=== PATIENT | male | born 1950 | race Caucasian/White ===

== ENCOUNTER → 2019-10-29 13:38 | Outpatient (CLI) | payer MEDICARE, SELFPAY ==
--- NOTE | ~2019-10-29 | XR_ITS ---
XR shoulder RT min 2V 10/29/2019 14:01 Indication: Right shoulder pain Procedure: 4 views right shoulder Comparison: No prior studies for comparison. Findings: No acute fracture or traumatic malalignment. No significant soft tissue abnormality. No rad iopaque foreign bodies. Impression: 1: No significant bone or joint abnormality. Reviewed, dictated and finalized at location B. Impression: 1: No significant bone or joint abnormality.
== END ==
PROVIDERS: PCP Family Medicine; Visit Provider Physician Assistant
DX: M25.519 Pain in unspecified shoulder (principal)
CPT/HCPCS: 73030

== ENCOUNTER 2024-10-23 00:14 | Day surgery (SDC) | payer MEDICARE, SELFPAY ==
[2024-10-11 13:35] VITALS: BMI 23.0
--- OUTSIDE RECORDS SUMMARY | 2024-10-23 00:17 | XMS_ITS | Clinical Summary ---
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 He has some discomfort extremity varicosities however overall this is not life altering. We discussed left lower extremity stab phlebectomies, at this point he would like to hold off on the procedure and he will follow-up if they become more symptomatic. Assessment & Plan (08/06/2022 11:36 AM CDT): Chronic symptomatic and bulky varicosities noted to the left medial calf that extends up to the thigh. States it is worse with standing. Denies any development of edema. Has tried compression stockings which have not helped his symptoms. Plan: Obtain a venous reflux to the left lower extremity follow-up in 1 month. Continue utilizing the compression stockings frequent elevation of the legs. 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 Gender Identity Not on file Sexual Orientation Not on file Obstetrics History Last Filed Vital Signs Vital Sign Reading Time Taken Comments Blood Pressure - - Pulse - - Temperature - - Respiratory Rate - - Oxygen Saturation - - Inhaled Oxygen Concentration - - Weight 75.8 kg (167 lb) 09/15/2022 10:31 AM CDT Height 177.8 cm (5' 10) 09/15/2022 10:31 AM CDT Body Mass Index 23.96 09/15/2022 10:31 AM CDT Plan of Treatment Health Maintenance Due Date Last Done Comments Depression Screening 1950 Fall Risk Assessment 1950 Hepatitis C Screening 1950 DTaP/Tdap/Td Vaccine (1 - Tdap) 06/03/1959 Hepatitis B Screening 1966 Zoster Vaccine (2 of 3) 03/25/2012 01/29/2012 Abdominal Aortic Aneurysm (A AA) Screen 2013 Well Visit 65+ 2013 Covid-19 Vaccine (2023-2 5 season) 2023 11/17/2021, 07/26/2021, 11/18/2020, Additional history exists Influenza Vaccine (#1) 2024 , 11/14/2020, 11/23/2019, Additional history exists Pneumococcal vaccine 65+ Completed 12/12/2015, 10/15 Insurance [facility] MEDICARE ADVANTAGE [facility] Address: [address] [phone] [facility] MEDICARE ADVANTAGE [facility] Address: [address] [phone] Care Teams Parcel Post Officer Relationship Specialty Start Date End Date José Miguel Casas MD [address] [place] [id number] PCP - General Family Medicine 07/20/22
--- OUTSIDE RECORDS SUMMARY | 2024-10-23 00:17 | XMS_ITS | Encounter Summary ---
Author Organization [facility] Address [address] [place] [address] Care Team Providers Care Electro Plater Name Role Phone José Miguel Casas MD Primary Care Provider [phone] Encounter Details Date Type Department Care Team (Late st Contact Info) Description 07/26/2022 Lab Requisition [facility] - DermPath Lab [address] [place] [address] Bailey Stahl PA-C [address] [place] [address] Neoplasm of uncertain behavior of skin Social History Tobacco Use Types Packs/Day Years Used Date Smoking Tobacco: Never Assessed Sex and Gender Information Value Date Recorded Sex Assigned at Not on file Legal Sex Male 4:05 AM CDT Gender Identity Not on file Sexual Orientation Not on file documented as of this encounter Plan of Treatment Not on file documented as of this encounter Procedures Procedure Name Priority Date/Time Associated Diagnosis Comments DERMATOPATHOLOGY Routine 07/26/2022 12:0 0 AM CDT Neoplasm of uncertain behavior of skin [ICD-10-CM] documented in this encounter Results * DERMATOPATHOLOGY (07/26/2022 12:00 AM CDT) Case Report Dermatopathology Report Case: [id number] Authorizing Provider: Bailey Stahl PA-C Collected: 07/26/2022 12:00 AM Ordering Location: [facility] DermPath Lab Received: 07/27/2022 11:29 AM Pathologist: Geovanna Tee MD Specimen: Skin, right nasal bridge 2:48 PM CDT DERMATOPATHOLOGY LABORATORY Final Diagnosis Specimen A. SKIN, right nasal bridge: ACTINIC KERATOSIS, ERODED (L57.0) 3 2:48 PM CDT DERMATOPATHOLOGY LABORATORY at 1448 CDT Clinical History Squamous Cell Carcinoma 3 2:48 PM CDT DERMATOPATHOLOGY LABORATORY Gross Description Specimen A: Received is one formalin filled container labeled with the patient's name and designated right nasal bridge. The specimen consists of a shave biopsy measuring 6x5x1 mm. Jar 0. 3 2:48 PM CDT DERMATOPATHOLOGY LABORATORY Microscopic Description Specimen A. SKIN, right nasal bridge: There is alternating orthokeratosis and parakeratosis. The epidermis is focally eroded. Along the undersurface of the epidermis, there are buds of atypical keratinocytes in a disorderly arrangement. 3 2:48 PM CDT DERMATOPATHOLOGY LABORATORY Disclaimer An external and internal positive and negative controls are appropriate for the histochemical, immunohistochemical and immunofluorescence stain(s) in this case (if any), except where stated explicitly. The performance characteristics of the stain(s) cited in this report were developed and its performance characteristic determined by the Dermatopathology Laboratory at [facility], directed by Dr. Jorje Pina. These tests need not be, and therefore are not, approved by the [place] Food and Drug Administration. The tests are used for clinical purposes. Billing Codes Specimen Charges Stain Charges 10854 1 3 2:48 PM CDT DERMATOPATHOLOGY LABORATORY Embedded Images 3 2:48 PM CDT DERMATOPATHOLOGY LABORATORY Pathology/Cytolog y TISSUE SPECIMEN FROM SKIN / Unknown 07/26/2022 07/27/2022 11:29 AM CDT Bailey Stahl PA-C LAB - PATHOLOGY/CYTOLOGY RUY CARR Final Result DERMATOPATHOLOGY LABORATORY [facility] - Department of Dermatology [address] [phone] documented in this encounter Visit Diagnoses Diagnosis Neoplasm of uncertain behavior of skin documented in this encounter Care Teams Electro Plater Relationship Specialty Start Date End Date José Miguel Casas MD [address] [place] [phone] PCP - General 10/13/18 documented as of this encounter
--- OUTSIDE RECORDS SUMMARY | 2024-10-23 00:17 | XMS_ITS | Clinical Summary ---
Author Organization [facility] Address [address] [place] [id number] Care Team Providers Care Expansion Envelope Maker Hand Name Role Phone Unavailable Primary Care Provider Unavailabl e Social History Tobacco Use Types Packs/Day Years Used Date Smoking Tobacco: Never Assessed Sex and Gender Information Value Date Recorded Sex Assigned at Not on file Legal Sex Male 5:29 PM CDT Gender Identity Not on file Sexual Orientation Not on file Plan of Treatment Health Maintenance Due Date Last Done Comments Hepatitis C 1966 DTaP, Tdap and Td Vaccines ( 1 - Tdap) 06/03/1967 Pneumococcal Vaccine: 50+ Ye ars (1 of 1 - PCV) 1998 Zoster Vaccines (1 of 2) 1998 RSV Immunization or 60+ Years (1 - 1-dose 75+ series) 06/03/2023 COVID-19 Vaccine ( - 2023-2 5 season) 2024 Meningococcal B Vaccine Aged Out No l onger eligible based on patient's age to complete this topic Meningococcal Vaccine Aged Out No carlos mari eligible based on patient's age to complete this topic RSV Immunizations Under 20 Months Aged Out No longer eligible based on patient's age to complete this topic
--- OUTSIDE RECORDS SUMMARY | 2024-10-23 00:17 | XMS_ITS | Clinical Summary ---
Author Organization [facility] Address [address] [facility] [place] [address] Care Team Providers Care Medical Collector Name Role Phone José Miguel Casas MD Primary Care Provider [phone] [facility],non-owned Affiliates and Associated Physician Practices is amultiple site organization consisting of ambulatory clinics and hospital sitesin [place], [place], [place] and [place]. This disclosure is being madepursuant to the Care Everywhere program and may not contain all information available regarding this patient. Last updated 17.[facility] Social History Tobacco Use Types Packs/Day Years Used Date Smoking Tobacco: Never Assessed Sex and Gender Information Value Date Recorded Sex Assigned at Not on file Legal Sex Male 4:05 AM CDT Gender Identity Not on file Sexual Orientation Not on file Plan of Treatment Health Maintenance Due Date Last Done Comments HEPATITIS C SCREENING 05/29/1966 DTAP/TDAP/TD VACCINES (1 - Tdap) 06/03/1967 PNEUMOCOCCAL VACCINE 50+ (1 of 1 - PCV) 1998 ZOSTER VACCINE (1 of 2) 1998 Respiratory Syncytial Virus (RSV) Vaccine Pt: or over 60 yrs (1 - 1-dose 75+ series) 06/03/2023 COVID-19 VACCINE ( - 2023-2 5 season) 2023 DEPRESSION SCREENING 02/15/2024 MEDICARE AWV CALENDAR YEAR 2024 INFLUENZA VACCINE (#1) 2024 HEPATITIS B VACCINE Aged Out No longe r eligible based on patient's age to complete this topic HIB VACCINE Aged Out No longer eligi ble based on patient's age to complete this topic HPV VACCINE Aged Out No longer eligi ble based on patient's age to complete this topic MENINGOCOCCAL (Group B) VACC INE SHARED DECISION-MAKING Aged Out No longer eligibl e based on patient's age to complete this topic MENINGOCOCCAL GROUPS A/C/Y/W VACCINE Aged Out No longer eligible b ased on patient's age to complete this topic Insurance [facility] MANAGED MEDICARE ADV Care Teams Medical Collector Relationship Specialty Start Date End Date José Miguel Casas MD [address] [place] [id number] PCP - General 10/13/18
[2024-10-23 06:17] VITALS: BP 113/74; PULSE 74; RESP 18; TEMP 36.3; O2SAT 98; BMI 22.7
[2024-10-23] MEDS: LACTATED RINGERS 1,000 ML 150 ML IV CONT (06:37)
--- NOTE | 2024-10-23 06:56 | WPDANESEPPF ---
Anes - Initial Pre Proc Eval Procedure: Operation Date: 10/23/24 07:30 Proposed Procedures p Diagnostic Colonoscopy - Jose Levin MD Date/Time: 10/23/24 06:56 Surgeon: Jose Levin MD Pre Op Diagnosis: Change in bowel habit Patient Data Age: 74 Gender: M Height: 1.78 m Weight: 71.8 kg Last Vital Signs Temp 36.3 C L 10/23/24 06:17 Pulse 74 10/23/24 06:17 Resp 18 10/23/24 06:17 BP 113/74 10/23/24 06:17 Pulse Ox 98 10/23/24 06:17 O2 Del Method Room Air 10/23/24 06:17 Allergies Allergy/AdvReac Type Severity Reaction Status Date / Time No Known Allergies Allergy Verified 10/23/24 06:25 Home Medications ?Medication ?Instructions ?Recorded ?Confirmed ?Type cetirizine 10 mg tablet 10 mg PO DAILY PRN allergy 10/12/22 10/11/24 Rx symptoms #30 tabs fluticasone propionate 50 1 spray intranasal DAILY #16 grams 10/12/22 10/23/24 Rx mcg/actuation nasal spray,suspension (Flonase Allergy Relief) ketoconazole 2 % topical cream 1 applic topical DAILY #60 grams 10/12/22 10/23/24 Rx pxuoqywm-ch-ymzyb 300 mcg-K 60 1 tablet PO DAILY #30 tabs 10/12/22 10/23/24 Rx mcg-lycop 600 mcg-lutein 300 mcg tablet (Centrum Silver Men) mometasone 0.1 % topical cream 1 applic topical DAILY PRN rash 03/11/23 10/11/24 Rx #45 grams Patient hx anesthesia problems: none Family hx anesthesia problems: none Results Review: All pre-operative results and documents have been reviewed as part of the pre-operative evaluation. COUNTS INCLUDE 234 BEDS AT [facility] Past Medical History Medical History Personal history of other colon polyps Allergic rhinitis Varicose veins of left lower extremity with other complications Surgical History Surgical History History of incisional hernia repair 09/16/2017 History of appendectomy 09/20/2015 History of umbilical hernia repair 1997 History of inguinal hernia repair 12/2011 History of discectomy L4-L5 1992 Family History Family History Mother Hypertension Carcinoma of colon Father Family history of cardiovascular disease Acute myocardial infarction Sibling Family history of gastrointestinal disorder Acute myocardial infarction Grandparent Carcinoma of colon Social History Social History Years smoked: 50 Smoking status: Former smoker Tobacco type: cigarettes Substance use: never Substance use type: does not use Lack of Transportation: No Lack of Food: Never True Current Housing: I Have Housing Concerned About Future Housing: No Difficulty Paying Gas/Electric Bills: No Difficulty Paying for Meds: No Currently Unemployed: No Education: Associate Degree Difficulty w/ Childcare or Family Care: No Living arrangements: with family Occupation/Education: retired Gender identity (if verbalized by the patient): Male Sexual Orientation (if Verbalized by the Patient): Straight or Heterosexual Anes - Eval Final PreProcedure Day of Procedure 10/23/24 06:56 Patient weight: normal Heart: regular rate and rhythm Lungs: clear to auscultation Airway: Mallampati scale class II Neurological: alert and oriented Last oral intake: >/= 8 hours ASA classification: III Emergent: no Anesthetic plan: proceed Anesthesia type and monitoring: general GIVS and standard monitoring Results Review: All pre-operative results and documents have been reviewed as part of the pre-operative evaluation. Informed Consent: The patient's anesthetic plan and its attendant risks and benefits were discussed with the patient/family/POA. Questions were solicited and answers provided to the satisfaction of the patient/family/POA.
--- NOTE | 2024-10-23 07:28 | P.HP_ITS ---
History of Present Illness History of Present Illness Consent: Risks, benefits, and alternatives have been discussed and questions answered. Patient agrees to proceed with procedure. Chief complaint: colon polyp Narrative: Rhett Muro is a 74 year old male with colon polyp in 2019 Review of Systems Review of Systems: All systems reviewed & are unremarkable except as noted in HPI and below PMFSH Past Medical History Medical History Personal history of other colon polyps Allergic rhinitis Varicose veins of left lower extremity with other complications Surgical History Surgical History History of incisional hernia repair 09/16/2017 History of appendectomy 09/20/2015 History of umbilical hernia repair 1997 History of inguinal hernia repair 1990, 12/2011 History of discectomy L4-L5 1992 Family History Family History Mother Hypertension Carcinoma of colon Father Family history of cardiovascular disease Acute myocardial infarction Sibling Family history of gastrointestinal disorder Acute myocardial infarction Grandparent Carcinoma of colon Social History Social History Years smoked: 50 Smoking status: Former smoker Tobacco type: cigarettes Substance use: never Substance use type: does not use Lack of Transportation: No Lack of Food: Never True Current Housing: I Have Housing Concerned About Future Housing: No Difficulty Paying Gas/Electric Bills: No Difficulty Paying for Meds: No Currently Unemployed: No Education: Associate Degree Difficulty w/ Childcare or Family Care: No Living arrangements: with family Occupation/Education: retired Gender identity (if verbalized by the patient): Male Sexual Orientation (if Verbalized by the Patient): Straight or Heterosexual Meds Home Medications and Allergies Home Medications ?Medication ?Instructions ?Recorded ?Confirmed ?Type cetirizine 10 mg tablet 10 mg PO DAILY PRN allergy 0 10/12/22 10/11/24 Rx symptoms #30 tabs fluticasone propionate 50 1 spray intranasal DAILY #16 grams 10/12/22 10/23/24 Rx mcg/actuation nasal spray,suspension (Flonase Allergy Relief) ketoconazole 2 % topical cream 1 applic topical DAILY #60 grams 10/12/22 10/23/24 Rx gykbywft-da-nwyko 300 mcg-K 60 1 tablet PO DAILY #30 t abs 10/12/22 10/23/24 Rx mcg-lycop 600 mcg-lutein 300 mcg tablet (Centrum Silver Men) mometasone 0.1 % topical cream 1 applic topical DAILY PRN rash 03/11/23 10/11/24 Rx #45 grams Allergies Allergy/AdvReac Type Severity Reaction Status Date / Time No Known Allergies Allergy Verified 10/23/24 06:25 Vital Signs Vital Signs - 24 hr 10/23/24 06:17 Temperature 97.3 F L Pulse Rate 74 Respiratory Rate 18 Blood Pressure 113/74 Pulse Oximetry 98 Oxygen Delivery Room Air Exam Const: General: comfortable and no acute distress HENMT: Face/Nose/Sinus: Normal nares present Eyes: General: appearance normal, both eyes and all related structures Neck: Neck: no JVD Resp: Auscultation: clear to auscultation bilaterally Cardio: Rate: regular rate Rhythm: regular rhythm GI: Inspection: non-distended GI Palp: Yes Soft to palpation Skin: General skin exam: normal color Neuro: Speech: normal speech Extrem: General: normal to inspection Psych: Mental Status: mental status grossly normal Assessment and Plan Assessment and plan (1) Personal history of other colon polyps: Code(s): Z86.0109 - Personal history of other colon polyps Status: Acute Assessment and Plan: colonoscopy
--- NOTE | 2024-10-23 07:42 | S_PTH ---
PATIENT: Rhett Muro LOC: [facility]#:[id number] AGE/SX: 74/M ROOM: RE10/23/[address]: Jose Levin MD : 1950 BED: DIS: 10/23/2024 SPEC #: [id number] RECD: 10/23/24 08:10 STATUS: JONN REKimberlee #: [id number] CAROLINE: 10/23/24 07:[address]: Jose Levin DEPT: [facility] Surgical RECD BY: Jordana Ley ENTERED: 10/23/24 08:11 SP TYPE: Surgical OTHR DR: José Miguel Casas MD Tissues: A - Colon Polypectomy B - Colon Polypectomy Procedures: Hematoxylin and Eosin Stain Gross and Microscopic Level 4
[2024-10-23 07:43] VITALS: BP 101/60; PULSE 55; RESP 19; O2SAT 97
[2024-10-23 07:53] VITALS: BP 108/58; PULSE 53; RESP 18; O2SAT 99
[2024-10-23 08:03] VITALS: BP 119/62; PULSE 55; RESP 16; O2SAT 100
== END 2024-10-23 08:16 | disposition home or self-care (01) ==
PROVIDERS: PCP Family Medicine; Referring Provider Family Medicine; Visit Provider Internal Medicine Gastroenterology
PROC: 0DJD8ZZ Inspection of Lower Intestinal Tract, Via Natural or Artificial Opening Endoscopic (ICD-10-PCS; CPT 45378; principal; 2024-10-23 07:30)
DX: Z12.11 Encounter for screening for malignant neoplasm of colon (principal); D12.0 Benign neoplasm of cecum; D12.5 Benign neoplasm of sigmoid colon; K64.8 Other hemorrhoids; Z98.890 Other specified postprocedural states; Z98.1 Arthrodesis status; Z87.891 Personal history of nicotine dependence; Z80.0 Family history of malignant neoplasm of digestive organs; Z82.49 Family history of ischemic heart disease and other diseases of the circulatory system
CPT/HCPCS: 45385; 45380; 88305; J2003; J2704; J7120

== ENCOUNTER 2025-01-18 14:30 | Outpatient (CLI) | payer MEDICARE, SELFPAY ==
--- NOTE | ~2025-01-18 | US_ITS ---
EXAMINATION: US venous doppler LE , 01/18/2025 14:41 SUSTAINABILITY COACH HISTORY: M79.662 - Pain in left lower leg Comparison: None Technique: Padilla-scale and color Doppler images were attempted of the lower saphenofemoral junction, common femoral vein,superficial femoral vein, proximal deep femoral vein, proximal deep femoral vein, popliteal vein and posterior tibial veins. Findings: Deep Venous System:Normal flow, augmentation and compressibility. No echogenic thrombus identified. The contralateral saphenofemoral junction appears unremarkable. Superficial Venous SystemNo superficial thrombophlebitis. Soft tissues: Soft tissues are unremarkable. Impression: Negative for DVT. Reviewed, dictated and finalized at location P. AINABILITY COACH Impression: Negative for DVT.
== END 2025-01-18 14:31 | disposition home or self-care (01) ==
PROVIDERS: PCP Family Medicine; Visit Provider Family Medicine
DX: M79.662 Pain in left lower leg (principal)
CPT/HCPCS: 93971